=== PATIENT | female | born 1995 | race African-American/Black ===

== ENCOUNTER 2017-05-07 10:44 | Emergency (ER) | payer OTHER ==
[~2017-05-07] VITALS: Ht 160 cm; Wt 59.5 kg
[2017-05-07 11:26] LABS: *BILIRUBIN,URIN NEGATIVE (NEGATIVE); *BLOOD, URINE NEGATIVE (NEGATIVE); *CLARITY,URINE CLEAR (CLEAR); *COLOR,URINE YELLOW (YELLOW); *KETONES,URINE NEGATIVE (NEGATIVE); *PROTEIN,URINE NEGATIVE (NEGATIVE); *UROBILINOGEN,URINE 0.2 E.U./dl (NORMAL); LEUKOCYTE ESTERASE ,URINE NEGATIVE (NEGATIVE); NITRITE, URINE NEGATIVE (NEGATIVE); UGLUCOSE NEGATIVE (NEGATIVE)
[2017-05-07 11:31] LABS: BASOPHILS % (AUTO) 0.4 % (0.0-2.0); EOSINOPHILS # (AUTO) 0.1 K/uL (0.0-0.7); EOSINOPHILS % (AUTO) 1.1 % (0.0-7.0); HEMATOCRIT 27.7 % (31.2-41.9); HEMOGLOBIN 8.9 g/dL (10.9-14.3); LYMPHOCYTES # (AUTO) 1.4 K/uL (20.0-40.0); LYMPHOCYTES % (AUTO) 29.8 % (20.5-51.5); MEAN CORPUSCULAR HGB CONC 32 g/dL (32.3-35.6); MEAN CORPUSCULAR VOLUME 77.4 fL (75.5-95.3); MONOCYTES # (AUTO) 0.4 K/uL (2.0-10.0); MONOCYTES % (AUTO) 8.9 % (0.0-11.0); NEUTROPHILS # (AUTO) 2.8 K/uL (1.8-8.9); NEUTROPHILS % (AUTO) 59.8 % (38.5-71.5); PLATELET COUNT (AUTO) 254 K/uL (179-408); RED BLOOD CELL COUNT(AUTO) 3.58 MIL/uL (3.63-4.92); WHITE BLOOD COUNT (AUTO) 4.7 K/uL (3.8-11.8)
[2017-05-07 11:31] LABS: BACTERIA,URINE FEW /HPF (NONE SEEN); MUCUS,URINE FEW /LPF (0-FEW); RBC,URINE 0-3 /HPF (0-3); SQUAMOUS EPITHELIAL CELL,UR MODERATE /HPF (NONE SEEN)
[2017-05-07 11:38] LABS: CREATININE 0.7 mg/dL (0.6-1.3)
[2017-05-07 11:44] LABS: BILIRUBIN,DIRECT 0.1 mg/dL (0.0-0.2); BILIRUBIN,TOTAL 0.4 mg/dL (0.2-1.0); TOTAL PROTEIN, SERUM 6.6 g/dL (6.4-8.2)
--- NOTE | 2017-05-07 12:11 | NUR ---
Patient discharged to home in stable conditon. Written and verbal after care instructions given. Patient verbalizes understanding of instructions.
== END 2017-05-07 12:43 | disposition home or self-care (01) ==
LOC: ER 10:44
DX: O26.899 Other specified pregnancy related conditions, unspecified trimester (principal); R10.31 Right lower quadrant pain; Z3A.00 Weeks of gestation of pregnancy not specified
CPT/HCPCS: 36415; 76856; 80048; 80076; 81001; 83690; 84703; 85025; 99285; A4663

== ENCOUNTER 2017-05-29 13:12 | Emergency (ER) | payer OTHER ==
[~2017-05-29] VITALS: Ht 157.5 cm; Wt 60.3 kg
[2017-05-29 14:39] LABS: CARBON DIOXIDE 22 mmol/L (21-32); CHLORIDE 104 mmol/L (98-107); CREATININE 0.6 mg/dL (0.6-1.3); GLUCOSE 84 mg/dL (74-106); POTASSIUM 3.8 mmol/L (3.5-5.1); UREA NITROGEN, BLOOD 9 mg/dL (7-18)
[2017-05-29 14:41] LABS: BASOPHILS % (AUTO) 0.3 % (0.0-2.0); EOSINOPHILS # (AUTO) 0.1 K/uL (0.0-0.7); EOSINOPHILS % (AUTO) 0.9 % (0.0-7.0); HEMATOCRIT 28.8 % (31.2-41.9); HEMOGLOBIN 9.4 g/dL (10.9-14.3); LYMPHOCYTES # (AUTO) 1.5 K/uL (20.0-40.0); LYMPHOCYTES % (AUTO) 19.1 % (20.5-51.5); MEAN CORPUSCULAR HEMOGLOBIN 25.8 uug (24.7-32.8); MEAN CORPUSCULAR HGB CONC 33 g/dL (32.3-35.6); MEAN CORPUSCULAR VOLUME 78.7 fL (75.5-95.3); MONOCYTES # (AUTO) 0.8 K/uL (2.0-10.0); MONOCYTES % (AUTO) 9.4 % (0.0-11.0); NEUTROPHILS # (AUTO) 5.7 K/uL (1.8-8.9); NEUTROPHILS % (AUTO) 70.3 % (38.5-71.5); PLATELET COUNT (AUTO) 271 K/uL (179-408); RED BLOOD CELL COUNT(AUTO) 3.66 MIL/uL (3.63-4.92); WHITE BLOOD COUNT (AUTO) 8.1 K/uL (3.8-11.8)
[2017-05-29 14:44] LABS: ALANINE AMINOTRANSFERASE 11 U/L (14-59); ALKALINE PHOSPHATASE 36 U/L (50-136); ASPARTATE AMINOTRANSFERASE 6 U/L (15-37); BILIRUBIN,DIRECT 0.1 mg/dL (0.0-0.2); BILIRUBIN,TOTAL 0.3 mg/dL (0.2-1.0)
[2017-05-29 15:23] LABS: *BILIRUBIN,URIN NEGATIVE (NEGATIVE); *BLOOD, URINE NEGATIVE (NEGATIVE); *COLOR,URINE YELLOW (YELLOW); *KETONES,URINE NEGATIVE (NEGATIVE); *PROTEIN,URINE NEGATIVE (NEGATIVE); *UROBILINOGEN,URINE 0.2 E.U./dl (NORMAL); LEUKOCYTE ESTERASE ,URINE NEGATIVE (NEGATIVE); NITRITE, URINE NEGATIVE (NEGATIVE); UGLUCOSE NEGATIVE (NEGATIVE)
[2017-05-29 15:37] LABS: *CLARITY,URINE HAZY (CLEAR)
[2017-05-29 15:38] LABS: BACTERIA,URINE FEW /HPF (NONE SEEN); MUCUS,URINE MANY /LPF (0-FEW); RBC,URINE 0-3 /HPF (0-3); SQUAMOUS EPITHELIAL CELL,UR MODERATE /HPF (NONE SEEN); WBC,URINE 0-3 /HPF (0-3)
--- NOTE | 2017-05-29 15:57 | NUR ---
Patient discharged to home in stable conditon. Written and verbal after care instructions given. Patient verbalizes understanding of instructions. Stressed follow up with pmd/obgyn or return to ER for worsening s/s.
== END 2017-05-29 16:01 | disposition home or self-care (01) ==
LOC: ER 13:12
DX: O26.891 Other specified pregnancy related conditions, first trimester (principal); R10.9 Unspecified abdominal pain; I88.9 Nonspecific lymphadenitis, unspecified; Z3A.10 10 weeks gestation of pregnancy
CPT/HCPCS: 36415; 76856; 85025; 85730; 86850; 86900; 86901; 87086; A4663

== ENCOUNTER → 2017-07-09 | Emergency (ER) | payer OTHER ==
[~2017-07-09] VITALS: Ht 160 cm; Wt 62.2 kg
[~2017-07-09] MED LIST: DEXAMETHASONE SOD PHOSPHATE 10 MG INJ ONE; PENICILLIN G BENZATHINE 2.4 MMU/4 ML DISP.SYRIN IM ONE
--- NOTE | 2017-07-09 18:11 | NUR ---
OF THIS TIME, PT STILL HAS NOT BEEN SEEN BY MD. DECIDED TO LEAVE TO COME BACK LATER TONIGHT.
== END | disposition left against medical advice (07) ==
LOC: ER 15:16
DX: Z53.21 Procedure and treatment not carried out due to patient leaving prior to being seen by health care provider (principal)
CPT/HCPCS: A4663

== ENCOUNTER 2017-07-10 13:57 | Emergency (ER) | payer OTHER ==
[~2017-07-10] VITALS: Ht 160 cm; Wt 62.1 kg
[2017-07-10] MEDS ORDERED: ACETAMINOPHEN 325 MG TABLET PO ONE (14:58)
[2017-07-10] MEDS ORDERED: ACETAMINOPHEN 325 MG TABLET ONE (15:13)
--- NOTE | 2017-07-10 15:14 | NUR ---
PRAVEENA ANDRADE FORM US MADE AWARE. WILL SEE PATIENT.
[2017-07-10 15:27] LABS: *BILIRUBIN,URIN NEGATIVE (NEGATIVE); *BLOOD, URINE NEGATIVE (NEGATIVE); *COLOR,URINE YELLOW (YELLOW); *KETONES,URINE NEGATIVE (NEGATIVE); *PROTEIN,URINE TRACE (NEGATIVE); *UROBILINOGEN,URINE 0.2 E.U./dl (NORMAL); LEUKOCYTE ESTERASE ,URINE NEGATIVE (NEGATIVE); NITRITE, URINE NEGATIVE (NEGATIVE); PH,URINE 7.5 (5.0-8.0); UGLUCOSE NEGATIVE (NEGATIVE)
[2017-07-10 15:34] LABS: *CLARITY,URINE HAZY (CLEAR)
[2017-07-10 15:35] LABS: BACTERIA,URINE FEW /HPF (NONE SEEN); MUCUS,URINE MANY /LPF (0-FEW); RBC,URINE 0-3 /HPF (0-3); SQUAMOUS EPITHELIAL CELL,UR MANY /HPF (NONE SEEN); WBC,URINE 0-3 /HPF (0-3)
[2017-07-10 15:56] VITALS: BP 127/73
--- NOTE | 2017-07-10 16:04 | NUR ---
Patient discharged to home in stable conditon. Written and verbal after care instructions given. Patient verbalizes understanding of instructions.
== END 2017-07-10 16:17 | disposition home or self-care (01) ==
LOC: ER 13:57
DX: O26.892 Other specified pregnancy related conditions, second trimester (principal); R51 Headache; R10.84 Generalized abdominal pain; Z3A.15 15 weeks gestation of pregnancy
CPT/HCPCS: 70030-TC; A4663

== ENCOUNTER 2019-11-15 19:47 | Emergency (ER) | payer OTHER ==
[~2019-11-15] VITALS: Ht 160 cm; Wt 61.7 kg
[2019-11-15 22:26] VITALS: BP 132/69
== END 2019-11-15 22:27 | disposition home or self-care (01) ==
LOC: ER 19:51
DX: S20.152A Superficial foreign body of breast, left breast, initial encounter (principal); X58.XXXA Exposure to other specified factors, initial encounter; Y92.89 Other specified places as the place of occurrence of the external cause; N63.11 Unspecified lump in the right breast, upper outer quadrant
CPT/HCPCS: 71045; 76641-TC; A4663

== ENCOUNTER 2021-03-09 10:19 | Emergency (ER) | payer OTHER ==
[~2021-03-09] VITALS: Ht 160 cm; Wt 59.0 kg
[2021-03-09] MEDS ORDERED: KETOROLAC TROMETHAMINE 15 MG INJ IVP ONE (11:00)
[2021-03-09] MEDS ORDERED: ACETAMINOPHEN 325 MG TABLET PO ONE (11:00)
[2021-03-09] MEDS ORDERED: IV NORMAL SALINE 100 ML BAG IV ONE (11:00)
[2021-03-09] MEDS ORDERED: METOCLOPRAMIDE HCL 10 MG/2 ML VIAL IV ONE (11:00)
[2021-03-09 11:39] LABS: HEMATOCRIT 38.2 % (31.2-41.9); MEAN CORPUSCULAR HEMOGLOBIN 31.7 uug (24.7-32.8); MEAN CORPUSCULAR VOLUME 94.4 fL (75.5-95.3); PLATELET COUNT (AUTO) 235 K/uL (179-408)
[2021-03-09 11:54] LABS: ALANINE AMINOTRANSFERASE 9 U/L (14-59); ALKALINE PHOSPHATASE 34 U/L (50-136); ASPARTATE AMINOTRANSFERASE 15 U/L (15-37); BILIRUBIN,TOTAL 0.3 mg/dL (0.2-1.0); CARBON DIOXIDE 26 mmol/L (21-32); CHLORIDE 103 mmol/L (98-107); CREATININE 0.8 mg/dL (0.6-1.3); GLUCOSE 97 mg/dL (74-106); LIPASE 99 U/L (73-393); POTASSIUM 3.9 mmol/L (3.5-5.1); TOTAL PROTEIN, SERUM 6.7 g/dL (6.4-8.2); UREA NITROGEN, BLOOD 13 mg/dL (7-18)
[2021-03-09] MEDS ORDERED: ACETAMINOPHEN 325 MG TABLET ONE (12:13)
[2021-03-09] MEDS ORDERED: KETOROLAC TROMETHAMINE 15 MG INJ ONE (12:14)
[2021-03-09] MEDS ORDERED: METOCLOPRAMIDE HCL 10 MG/2 ML VIAL ONE (12:14)
--- NOTE | 2021-03-09 12:19 | NUR ---
Pt refused HL/fluid and IV and PO meds, Dr Barker aware.
[2021-03-09 12:28] LABS: *BILIRUBIN,URIN NEGATIVE (NEGATIVE); *BLOOD, URINE NEGATIVE (NEGATIVE); *CLARITY,URINE CLEAR (CLEAR); *COLOR,URINE YELLOW (YELLOW); *KETONES,URINE NEGATIVE (NEGATIVE); *UROBILINOGEN,URINE 0.2 E.U./dl (NORMAL); LEUKOCYTE ESTERASE ,URINE NEGATIVE (NEGATIVE); NITRITE, URINE NEGATIVE (NEGATIVE); PH,URINE 5.5 (5.0-8.0); UGLUCOSE NEGATIVE (NEGATIVE)
[2021-03-09] MEDS ORDERED: FLUC200T8 PO ×2 (13:37→13:53)
[2021-03-09] MEDS ORDERED: METR500T PO ×2 (13:42→13:53)
--- NOTE | 2021-03-09 13:50 | NUR ---
Patient discharged to home in stable condition. Written and verbal after care instructions given. Patient verbalizes understanding of instructions. Stressed follow up or return to ER for worsening s/s.
[2021-03-09 13:51] VITALS: BP 120/59
[2021-03-11 08:06] LABS: *TRIC.VAG. NAA Negative (Negative)
[2021-03-11 09:07] LABS: *GC NAA Negative (Negative)
== END 2021-03-09 14:10 | disposition home or self-care (01) ==
LOC: ER 10:19
DX: R10.84 Generalized abdominal pain (principal); R07.81 Pleurodynia; D72.819 Decreased white blood cell count, unspecified; R51.9 Headache, unspecified; Z20.822 Contact with and (suspected) exposure to COVID-19; Z97.5 Presence of (intrauterine) contraceptive device
CPT/HCPCS: 36415; 70030-TC; 71045; 76856; 83690; 85025; 87081; 87210; 87491; 93005; A4663; J1885; J2765; J7030

== ENCOUNTER 2021-12-22 10:37 | Emergency (ER) | payer OTHER ==
[~2021-12-22] VITALS: Ht 157.5 cm; Wt 63.5 kg
[~2021-12-22 10:37] MED LIST changes: -DEXAMETHASONE SOD PHOSPHATE 10 MG INJ ONE; +FLUC200T8 PO; +METR500T PO; -PENICILLIN G BENZATHINE 2.4 MMU/4 ML DISP.SYRIN IM ONE
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
[2021-12-22] MEDS ORDERED: IBUP-1955 PO (11:42)
--- NOTE | 2021-12-22 11:49 | NUR ---
Pt discharged to home in stable condition. X-ray and CT scan were unremarkable. Rx prescription requested were sent to the preferred pharmacy by [facility]. Written and verbal after care instructions given. Pt verbalizes understanding of instructions. Stressed follow up or return to ER for worsening s/s.
[2021-12-22 11:52] VITALS: BP 125/75
== END 2021-12-22 11:49 | disposition home or self-care (01) ==
LOC: ER 10:37
DX: S16.1XXA Strain of muscle, fascia and tendon at neck level, initial encounter (principal); S46.912A Strain of unspecified muscle, fascia and tendon at shoulder and upper arm level, left arm, initial encounter; V49.59XA Passenger injured in collision with other motor vehicles in traffic accident, initial encounter; Y92.410 Unspecified street and highway as the place of occurrence of the external cause
CPT/HCPCS: 72125; 73030; A4663